=== PATIENT | female | born 1960 | race Caucasian/White ===

== ENCOUNTER 2017-10-13 09:11 | Emergency (ER) | payer OTHER ==
[~2017-10-13] VITALS: Ht 157.5 cm; Wt 72.6 kg
[2017-10-13 09:21] VITALS: Ht 157.5 cm; Wt 72.6 kg
[2017-10-13 12:41] VITALS: BP 124/77
== END 2017-10-13 12:40 | disposition home or self-care (01) ==
LOC: ED 09:11
DX: M54.5 Low back pain (principal); G89.29 Other chronic pain; J45.909 Unspecified asthma, uncomplicated; Z88.0 Allergy status to penicillin; Z88.2 Allergy status to sulfonamides
CPT/HCPCS: J1885